=== PATIENT | female | born 1970 | race Two or more races ===

== ENCOUNTER 2024-11-05 20:21 | Inpatient (IN) | payer BC, OTHER ==
[~2024-11-05] VITALS: Ht 154.9 cm; Wt 67.3 kg
--- NOTE | 2024-11-05 20:43 | ECG ---
[facility] Test Date: 2024-11-05 Test Time: 20:35:45 Pat Name: TARAS OLIVA Department: [facility] ED Room: [address] [place] [address] Gender: F Community Education Coordinator: JUVENTINO : 1970 Requested By: MIRIAM GILMAN Order Number: [id number] Reading MD: Froylan Sheffield Measurements Intervals [place] Rate: 77 P: 40 VT: 159 QRS: 52 QRSD: 83 T: 57 QT: 398 QTc: 451 Interpretive Statements Sinus rhythm Electronically Signed On 11-06-2024 17:54:41 PDT by Froylan Sheffield Please click the below link to view image of tracing.
[2024-11-05] MEDS: LABETALOL HCL 20 MG/4 ML VL IV ONE (21:00)
--- NOTE | 2024-11-05 21:00 | ED.PDOC ---
History of Present Illness HPI Comments This is a 54-year-old female with past medical history of hypertension presented to the ED with chief complaint of burning chest pain, vomiting and elevated blood pressure. The patient mentioned that she was diagnosed with high blood pressure last year and was on antihypertensive for 4 months but stopped taking since March,. Today around 6:30 p.m. she started having burning chest pain which was localized, 10/17 without any aggravating factor but relieved by calm down and frequent urination and the blood pressure was 209/100. In the ED blood pressure was 163/100. 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 Family History Family History: Reviewed,noncontributory to illness, No family hx of Cancer, No family hx of DM, No family hx of Heart nathaniel, No family hx of HTN, No family hx ofKidney nathaniel, No family hx of Liver nathaniel, No family hx of Lung nathaniel, No family hx of Stroke Social History Smoker: Pipe Alcohol: Occasionally Drugs: Marijuana Lives In: Home Constitutional: denies: chills, diaphoresis, fatigue, fever, malaise, sweats, weakness, others EENTM: denies: blurred vision, double vision, ear bleeding, ear discharge, ear drainage, ear pain, ear ringing, eye pain, eye redness, hearing loss, mouth pain, mouth swelling, nasal discharge, nose bleeding, nose congestion, nose pain, photophobia, tearing, throat pain, throat swelling, voice changes, others Respiratory: denies: cough, hemoptysis, orthopnea, SOB at rest, shortness of breath, SOB with excertion, stridor, wheezing, others Cardiovascular: reports: chest pain, diaphoresis; denies: dizzy spells, Dyspnea on exertion, edema, irregular heart beat, left arm pain, lightheadedness, palpitations, PND, syncope, others Gastrointestinal: denies: abdomen distended, abdominal pain, blood streaked bowels, constipated, diarrhea, dysphagia, difficulty swallowing, hematemesis, melena, nausea, poor appetite, poor fluid intake, rectal bleeding, rectal pain, vomiting, others Genitourinary: denies: abnormal vagina bleeding, burning, dyspareunia, dysuria, flank pain, frequency, hematuria, incontinence, pain, , vagina discharge, urgency, others Neurological: denies: dizziness, fainting, headache, left sided numbness, left sided weakness, numbness, paresthesia, pre-existing deficit, right sided numbness, right sided weakness, seizure, speech problems, tingling, tremors, weakness, others Musculoskeletal: denies: back pain, gout, joint pain, joint swelling, muscle pain, muscle stiffness, neck pain, others Integumetry: denies: bruises, change in color, change in hair/nails, dryness, laceration, lesions, lumps, rash, wounds, others Allergic/Immunocompromised: denies: Difficulty Healing, Frequent Infections, Hives, Itching, others Endocrine: denies: excessive hunger, excessive sweating, excessive thirst, excessive urination, flushing, intolerance to cold, intolerance to heat, unexplained weight gain, unexplained weight loss, others Psychiatric: denies: anxiety, bipolar disorder, depression, hopeless, panic disorder, schizophrenia, sleepless, suicidal, others Physical Exam General Appearance: Normal HEENT: Normal ENT Inspection, Pharynx Normal, TMs Normal Neck: Full Range of Motion, Non-Tender, Normal, Normal Inspection Respiratory: Chest Non-Tender, Lungs Clear, No Accessory Muscle Use, No Respiratory Distress, Normal Breath Sounds Cardiovascular: No Edema, No JVD, No Murmur, No Gallop, Normal Peripheral Pulses, Regular Rate/Rhythm Breast Exam: Deferred Gastrointestinal: No Organomegaly, Non Tender, No Pulsatile Mass, Normal Bowel Sounds, Soft Genitalia: Deferred Pelvic: Deferred Rectal: Deferred Extremities: No calf tenderness, Normal capillary refill, Normal inspection, Normal range of motion, Non-tender, No pedal edema Neurologic: NOT DONE Cerebellar Function: NOT DONE Reflexes: NOT DONE Skin: NOT DONE Peripheral Pulses: 3+ carotid (R), 3+ carotid (L), 3+ femoral (R), 3+ femoral (L), 3+ dorsalis pedis (R), 3+ dorsalis pedis (L), 3+ Radial (R), 3+ Radial (L), 3+ Brachial (R), 3+ Brachial (L) Lymphatic: NOT DONE Was a procedure done? Was a procedure done?: No EKG EKG : Cardiac Rhythm: NSR Differential Dx Considerations may include: Uncontrolled hypertension, chest pain, panic attack, unstable angina. X-Ray, Labs, Meds, VS Vital Signs Date Time Temp Pulse Resp B/P (MAP) Pulse Ox O2 Delivery O2 Flow Rate FiO2 11/05/24 20:35 77 11/05/24 20:21 98.2 78 20 163/100 98 98.2 Lab Test 11/05/24 21:00 Range/Units White Blood Count Pending Red Blood Count Pending Hemoglobin Pending Hematocrit Pending Mean Corpuscular Volume Pending Mean Corpuscular Hemoglobin Pending Mean Corpuscular Hemoglobin Concent Pending Red Cell Distribution Width Pending Platelet Count Pending Mean Platelet Volume Pending Neutrophils (%) (Auto) Pending Lymphocytes (%) (Auto) Pending Monocytes (%) (Auto) Pending Basophils (%) (Auto) Pending Neutrophils # (Auto) Pending Lymphocytes # (Auto) Pending Monocytes # (Auto) Pending Sodium Level Pending Potassium Level Pending Chloride Level Pending Carbon Dioxide Level Pending Anion Gap Pending Blood Urea Nitrogen Pending Creatinine Pending Glomerular Filtration Rate Calc Pending BUN/Creatinine Ratio Pending Serum Glucose Pending Calcium Level Pending Troponin I High Sensitivity Pending B-Type Natriuretic Peptide Pending Time of 1ST Reevaluation: 21:50 Reevaluation 1ST: Improved Patient Education/Counseling: Diagnosis, Treatment Family Education/Counseling: No Family Present SEPSIS Sepsis Screen Date sepsis recognized/suspect: Nov 05, 2024 Time Sepsis recognized/suspect: 2020 Recent Procedure: No On Antibiotic Therapy: No Respiratory Rate >20: No Heart Rate >90: No Temp<36 C (96.8 F) or >38.3 C: No SBP <90 or MAP <65 mmHG: No New Acute Mental Status Change: No Is the patient on CPAP, BIPAP,: No Physician Orders Complete Blood Count (11/05/24 20:48) Basic Metabolic Panel (11/05/24 20:48) Troponin-I Hs (11/05/24 20:48) Urinalysis (11/05/24 20:48) Drug Screen (11/05/24 20:48) B-Type Natriuretic Peptide (11/05/24 20:48) Test, Urine (11/05/24 20:48) Vital Signs Date Time Temp Pulse Resp B/P (MAP) Pulse Ox O2 Delivery O2 Flow Rate FiO2 11/05/24 20:35 77 11/05/24 20:21 98.2 78 20 163/100 98 98.2 Laboratory Tests Test 11/05/24 21:00 White Blood Count Pending Departure 1 Departure Time of Disposition: 21:52 Impression: Primary Impression: Uncontrolled hypertension Additional Impression: Chest pain Disposition: 30 STILL A PATIENT Admit to: Tele Condition: Guarded Critical Care Note Critical Care Time?: No Stability Stability form required: MIRIAM Guerrero RESIDENT Nov 05, 2024 21:00
[2024-11-05 21:30] LABS: Chloride 104 mmol/L (98-107); Potassium 4.1 mmol/L (3.5-5.1); Sodium 142 mmol/L (136-145)
[2024-11-05 21:31] LABS: Anion Gap 7 (5-15); Calcium 10.0 mg/dL (8.7-10.4); Carbon Dioxide 31 mmol/L (20-31)
[2024-11-05 21:32] LABS: Hematocrit 43.3 % (36.0-46.0); Hemoglobin 15.2 g/dL (12.2-16.2); Mean Corpuscular Hemoglobin 31.8 pg (28.0-32.0); Mean Corpuscular Volume 90.6 fL (80.0-100.0); Nucleated Red Blood Cells % 0.2 %
[2024-11-05 21:36] LABS: BUN/Creatinine Ratio 14.9 (10.0-20.0); Blood Urea Nitrogen 13 mg/dL (9-23); Glucose 97 mg/dL (74-106)
[2024-11-05] MEDS ORDERED: ACETAMINOPHEN 325 MG TAB PO PRN (23:00)
[2024-11-05] MEDS ORDERED: ONDANSETRON HCL 4 MG/2 ML VIAL IV PRN (23:00)
[2024-11-05] MEDS ORDERED: hydrALAZINE HCL 20 MG/ML VL IV PRN (23:00)
[2024-11-05] MEDS: LISINOPRIL 5 MG TAB PO ONE (23:30)
--- NOTE | 2024-11-06 00:20 | DVHHP2 ---
History of Present Illness Reason for Visit: Chest pain History of Present Illness 54-year-old female presents for evaluation of chest pain. Patient reports developing substernal pressure-like chest pain with associated nausea and vomiting. She states when she checked her blood pressure was reading greater than 200. She was diagnosed with high blood pressure last year but only took medication for four months. Currently denies any symptoms. Past Medical History Hypertension Past Surgical History Denies Family History Noncontributory Smoke: No ALCOHOL: occassional Drugs: Marijuana Lives: with Family Review of Systems Review of Systems Review of systems are currently negative otherwise addressed in HPI. Allergies: Coded Allergies: Erythromycin (Verified Allergy, Unknown, 11/05/24) Medications Current Medications Medications Dose Ordered Sig/Susie Route Start Time Stop Time Status Last Admin Dose Admin Hydralazine HCl 10 mg Q6HP PRN IV 11/05/24 23:00 Lisinopril 10 mg DAILY PO 11/06/24 10:00 Aspirin 162 mg DAILY PO 11/06/24 10:00 Atorvastatin Calcium 10 mg HS PO 11/06/24 22:00 Ondansetron HCl 4 mg Q4HP PRN IV 11/05/24 23:00 Acetaminophen 650 mg Q6HP PRN PO 11/05/24 23:00 Exam Vital Signs Vital Signs Date Time Temp Pulse Resp B/P (MAP) Pulse Ox O2 Delivery O2 Flow Rate FiO2 11/05/24 20:35 77 11/05/24 20:21 98.2 20 163/100 98 98.2 Exam Gen: 54-year-old female in mild distress Skin: Warm, dry, normal color and texture, no rash. HEENT: Normocephalic atraumatic, mucous membranes moist and pink. Neck: Cervical and supraclavicular nodes normal without enlargement, trachea is midline, thyroid gland is normal without masses. Pulmonary: Clear to auscultation and percussion bilaterally. Cardiac: Regular rate and rhythm. No murmur Abdomen: Soft, nontender, nondistended, bowel sounds present all 4 quadrants, no guarding, no rigidity, no organomegaly. Extremities: No cyanosis, clubbing, no edema Neuro: Cranial nerves II through XII grossly intact, normal affect and speech, no focal motor deficits. Labs/Xrays Labs Test 11/05/24 23:12 11/05/24 21:00 Range/Units Troponin I High Sensitivity 397 *H </=34 ng/L White Blood Count 5.8 4.4-10.8 10^3/uL Red Blood Count 4.78 4.0-5.20 10^6/uL Hemoglobin 15.2 12.2-16.2 g/dL Hematocrit 43.3 36.0-46.0 % Mean Corpuscular Volume 90.6 80.0-100.0 fL Mean Corpuscular Hemoglobin 31.8 28.0-32.0 pg Mean Corpuscular Hemoglobin Concent 35.1 32.0-36.0 g/dL Red Cell Distribution Width 13.3 11.8-14.3 % Platelet Count 259 140-450 10^3/uL Mean Platelet Volume 8.4 6.9-10.8 fL Neutrophils (%) (Auto) 57.1 37.0-80.0 % Lymphocytes (%) (Auto) 33.3 10.0-50.0 % Monocytes (%) (Auto) 7.4 0.0-12.0 % Eosinophils (%) (Auto) 1.4 0.0-7.0 % Basophils (%) (Auto) 0.8 0.0-2.0 % Neutrophils # (Auto) 3.3 1.6-8.6 10 ^3/uL Lymphocytes # (Auto) 1.9 0.4-5.4 10 ^3/uL Monocytes # (Auto) 0.4 0-1.3 10 ^3/uL Eosinophils # (Auto) 0.1 0-0.8 10 ^3/uL Basophils # (Auto) 0 0-0.2 10 ^3/uL Nucleated Red Blood Cells 0.2 % Sodium Level 142 136-145 mmol/L Potassium Level 4.1 3.5-5.1 mmol/L Chloride Level 104 98-107 mmol/L Carbon Dioxide Level 31 20-31 mmol/L Anion Gap 7 5-15 Blood Urea Nitrogen 13 9-23 mg/dL Creatinine 0.87 0.550-1.02 mg/dL Glomerular Filtration Rate Calc 80 >90 mL/min BUN/Creatinine Ratio 14.9 10.0-20.0 Serum Glucose 97 74-106 mg/dL Calcium Level 10.0 8.7-10.4 mg/dL B-Type Natriuretic Peptide 12.32 0-100 pg/mL SEPSIS Sepsis Screen Date sepsis recognized/suspect: Nov 05, 2024 Time Sepsis recognized/suspect: 2020 Recent Procedure: No On Antibiotic Therapy: No Respiratory Rate >20: No Heart Rate >90: No Temp<36 C (96.8 F) or >38.3 C: No SBP <90 or MAP <65 mmHG: No New Acute Mental Status Change: No Is the patient on CPAP, BIPAP,: No Physician Orders Urinalysis (11/05/24 20:48) Drug Screen (11/05/24 20:48) Test, Urine (11/05/24 20:48) Chest Portable (11/05/24 21:55) Troponin-I Hs (11/05/24 23:46) Hydralazine Injection (Apresoline Inject (11/05/24 23:00) Lisinopril Tablet (Zestril Tablet) (11/06/24 10:00) Aspirin Tablet (11/06/24 10:00) Atorvastatin (Lipitor) (11/06/24 22:00) Basic Metabolic Panel (11/06/24 04:00) Ondansetron Hcl (Zofran) (11/05/24 23:00) Cardiac Diet-2gna,Lofat,Lochol (11/06/24 Breakfast) Echo 2d Mode Cardiac Dop (11/05/24 22:46) Condition: Fair (11/05/24 22:46) Acetaminophen Tablet (Tylenol Tablet) (11/05/24 23:00) Bedrest With Bathroom Privileg (11/05/24 22:46) Thyroid Stimulating Hormone (11/06/24 00:07) Lipid Panel (11/06/24 00:07) * Cardiology Consult (11/06/24 00:16) Vital Signs Date Time Temp Pulse Resp B/P (MAP) Pulse Ox O2 Delivery O2 Flow Rate FiO2 11/05/24 20:35 77 11/05/24 20:21 98.2 78 20 163/100 98 98.2 Laboratory Tests Test 11/05/24 21:00 White Blood Count 5.8 10^3/uL (4.4-10.8) Assessment/Plan Assessment/Plan Assessment NSTEMI Hypertensive crisis Plan Admit the patient to telemetry to the hospitalist ACS protocol Cardiology consultation Chest x-ray pending Continue treatment per orders. Plan discussed with: Patient My Orders Orders - HYMAN,OBED AGACNP Procedure Category Date Status Time Troponin-I Hs LAB 11/05/24 Logged 23:46 Hydralazine Injection PHA 11/05/24 In Process (Apresoline Inject 23:00 Lisinopril Tablet PHA 11/06/24 In Process (Zestril Tablet) 10:00 Aspirin Tablet PHA 11/06/24 In Process 10:00 Atorvastatin (Lipitor) PHA 11/06/24 In Process 22:00 Basic Metabolic Panel LAB 11/06/24 Logged 04:00 Ondansetron Hcl PHA 11/05/24 In Process (Zofran) 23:00 Cardiac DIET 11/06/24 Transmitted Diet-2gna,Lofat,Lochol Breakfast Echo 2d Mode Cardiac US 11/05/24 Logged DOP 22:46 Condition: Fair RUSSELL 11/05/24 In Process 22:46 Acetaminophen Tablet PHA 11/05/24 In Process (Tylenol Tablet) 23:00 Bedrest With Bathroom RUSSELL 11/05/24 In Process Privileg 22:46 Thyroid Stimulating LAB 11/06/24 In Process Hormone 00:07 Lipid Panel LAB 11/06/24 In Process 00:07 * Cardiology Consult CONS 11/06/24 Transmitted 00:16 Date of Service: Nov 05, 2024 Billing Provider: VICTORINO HYMAN Common Visit Codes: [id number] INP/OBS CARE (HIGH) VICTORINO HYMAN Nov 06, 2024 00:20
[2024-11-06 00:47] LABS: Cholesterol 220 mg/dL (< 200); HDL Cholesterol 69 mg/dL (40-59); Triglycerides 162 mg/dL (< 150)
--- NOTE | 2024-11-06 01:26 | DVH ---
CHEST RADIOGRAPH Indication: chest pain Technique: Single frontal view of the chest was obtained COMPARISON: None FINDINGS: Lines and Tubes: None Lungs: Clear Pleura: No effusion. No pneumothorax. Cardiomediastinal contours: Unremarkable Bones: Unremarkable IMPRESSION: 1. No acute disease.
[2024-11-06] MEDS: ENOXAPARIN SOD 100 MG/1 ML SYRINGE SC ONE (02:30)
[2024-11-06] MEDS ORDERED: NITROGLYCERIN 0.4 MG SL TAB SL PRN (02:45)
[2024-11-06] MEDS ORDERED: ONDANSETRON HCL 4 MG/2 ML VIAL IV PRN (02:45)
[2024-11-06] MEDS ORDERED: MORPHINE SULFATE INJ 2 MG/ml SYRG IV PRN (02:45)
[2024-11-06 03:24] VITALS: PULSE 69; RESP 15; O2SAT 95
[2024-11-06 05:02] LABS: Urine Amorphous Crystal FEW /hpf (None Seen); Urine Protein, UAD Negative (Negative)
[2024-11-06 05:05] LABS: Cannabinoid Screen, Urine Pos (NEGATIVE)
[2024-11-06 05:08] LABS: Amphetamine Screen, Urine Neg (NEGATIVE); Barbiturate Scree,Urine Neg (NEGATIVE); Benzodiazephine Screen, Urine Neg (NEGATIVE); Cocaine Screen, Urine Neg (NEGATIVE); Opiate Scree,Urine Neg (NEGATIVE); Phencyclidine Screen, Urine Neg (NEGATIVE)
[2024-11-06 06:53] LABS: Chloride 105 mmol/L (98-107); Potassium 3.6 mmol/L (3.5-5.1); Sodium 142 mmol/L (136-145)
[2024-11-06 06:54] LABS: Anion Gap 10 (5-15); Calcium 9.5 mg/dL (8.7-10.4); Carbon Dioxide 27 mmol/L (20-31)
[2024-11-06 06:59] LABS: BUN/Creatinine Ratio 19.4 (10.0-20.0); Blood Urea Nitrogen 14 mg/dL (9-23); Glucose 92 mg/dL (74-106)
[2024-11-06 09:03] VITALS: PULSE 72; RESP 14; O2SAT 94
[2024-11-06 10:04] VITALS: BP 146/95; PULSE 73; RESP 18; TEMP 98; O2SAT 98
[2024-11-06 10:17] VITALS: BP 146/95; PULSE 73; RESP 18; TEMP 98; O2SAT 98
[2024-11-06] MEDS: LISINOPRIL 5 MG TAB PO SCH (10:29)
--- NOTE | 2024-11-06 10:30 | DVHINCON2 ---
Date Seen: Nov 06, 2024 Referring Physician ELMA Woodall Reason for Consultation Elevated troponin History of Present Illness This is a 54-year-old female patient who presents to emergency room with chief complaint of chest burning, nausea, and vomiting. The patient reports that she and her went for a bike ride and shortly after she began to feel this burning sensation in her chest. She describes it as provoked with a bike ride, constant, burning in nature, localized to substernal region, and nonradiating. Associated symptoms include nausea and vomiting. The patient reports that when she came home had an episode of emesis and immediately felt relief of the chest burning. She decided to check her blood pressure at home and was surprised when she saw her systolic reading greater than 200. She said she was trying to calm and then decided to recheck her blood pressure with a repeat systolic greater than 170. The patient decided to come to the emergency room for further evaluation. Initial twelve lead electrocardiogram reveals normal sinus rhythm without any significant ST segment changes. Initial troponin level of 109ng/L with up trend and current peak level at 464ng/L. Significant past medical history includes hypertension and dyslipidemia. The patient reports that she previously was prescribed antihypertensive medications but was taken off by her primary care physician at the end of last year. She states that she does not regularly check her blood pressures at home. Past Medical History Past medical history reviewed. No other significant than mentioned above. Past Surgical History Bilateral breast implants Ovarian cyst removal Family History Family history reviewed. Social History Patient admits to vaping daily Denies any illicit drug use. Toxicology screen positive for cannabinoids States occasional alcohol use 1-2 times per month Allergies: Coded Allergies: Erythromycin (Verified Allergy, Unknown, 11/05/24) Home Meds Denies any prescribed medications Current Medications Current Medications Medications (Trade) Dose Ordered Sig/Susie Route PRN Reason Start Time Stop Time Status Last Admin Hydralazine HCl (Apresoline Injection) 10 mg Q6HP PRN IV SBP>150 11/05/24 23:00 Lisinopril (Zestril Tablet) 10 mg DAILY PO 11/06/24 10:00 Aspirin 162 mg DAILY PO 11/06/24 10:00 Atorvastatin Calcium (Lipitor) 10 mg HS PO 11/06/24 22:00 Ondansetron HCl (Zofran) 4 mg Q4HP PRN IV NAUSEA / VOMITING 11/05/24 23:00 Acetaminophen (Tylenol Tablet) 650 mg Q6HP PRN PO PAIN SCALE 1-3 OR TEMP>100.4 11/05/24 23:00 Ondansetron HCl (Zofran) 4 mg Q4HP PRN IV NAUSEA / VOMITING 11/06/24 02:45 Nitroglycerin (Ntrostat Sublingual) 0.4 mg Q5MINP PRN SL FOR CHEST PAIN 11/06/24 02:45 Morphine Sulfate 2 mg Q30M PRN IV FOR CHEST PAIN 11/06/24 02:45 Review of Systems Constitutional: No symptom reported Ears, Nose, & Throat: No symptom reported Eyes: No symptom reported Neurological: No symptoms reported Pulmonary/Respiratory: No symptoms reported Cardiovascular: Chest burning Gastrointestinal: Nausea and vomiting Genitourinary: No symptom reported Musculoskeletal: No symptom reported Skin: No symptom reported Psychiatric: No symptom reported Endocrine: No symptom reported Hematologic/Lymphatic: No symptom reported Vital Signs Vital Signs Date Time Temp Pulse Resp B/P (MAP) Pulse Ox O2 Delivery O2 Flow Rate FiO2 11/06/24 10:04 98.0 73 18 146/95 (112) 98 98.0 11/06/24 09:03 Room Air* 0 21 Physical Exam General Appearance: Cooperative. Well-developed. Well-nourished. No acute dis tress. Pulmonary/Respiratory: Clear, bilateral breaths sounds. Cardiovascular/Chest: Regular rate and rhythm. Peripheral Pulses: 2+ Radial (R). 2+ Radial (L). 2+ Pedal (R). 2+ Pedal (L) Abdominal Exam: Normal bowel sounds. Ankle Exam: Negative ankle edema Lower extremities: Negative lower extremity edema Neuro/Mental Status: A/OX4, coherent. Thoughts/Psych: Normal thought pattern. Appropriate mood and affect. Good judgment and insight. Appearance: No acute distress. Skin Exam: Normal inspection. Normal color. Warm and dry. Labs/Diagnostic Data Labs Test 11/06/24 06:10 11/06/24 03:55 11/05/24 21:00 Range/Units Sodium Level 142 136-145 mmol/L Potassium Level 3.6 3.5-5.1 mmol/L Chloride Level 105 98-107 mmol/L Carbon Dioxide Level 27 20-31 mmol/L Anion Gap 10 5-15 Blood Urea Nitrogen 14 9-23 mg/dL Creatinine 0.72 0.550-1.02 mg/dL Glomerular Filtration Rate Calc 100 >90 mL/min BUN/Creatinine Ratio 19.4 10.0-20.0 Serum Glucose 92 74-106 mg/dL Hemoglobin A1c 5.2 <5.7 % A1C Calcium Level 9.5 8.7-10.4 mg/dL Magnesium Level 1.9 1.6-2.6 mg/dL Urine Color Colorless Yellow Urine Clarity Turbid H Clear Urine pH 7.0 5.0-9.0 Urine Specific [place] 1.018 1.001-1.035 Urine Protein Negative Negative Urine Ketones Negative Negative Urine Blood Negative Negative /uL Urine Nitrite Negative Negative Urine Bilirubin Negative Negative Urine Urobilinogen Normal Negative mg/dL Urine Leukocyte Esterase Negative Negative /uL Urine RBC None seen 0 - 4 /hpf Urine Microscopic WBC < 1 0-5 /HPF Urine Squamous Epithelial Cells Few <5 /hpf Urine Amorphous Crystals Few None Seen /hpf Urine Bacteria Few H None Seen /hpf Urine Glucose Normal Normal mg/dL Urine Test Negative Negative Urine Opiates Screen Neg NEGATIVE Urine Fentanyl Screen Neg NEGATIVE Urine Barbiturates Screen Neg NEGATIVE Urine Phencyclidine Screen Neg NEGATIVE Urine Amphetamines Screen Neg NEGATIVE Urine Benzodiazepines Screen Neg NEGATIVE Urine Cocaine Screen Neg NEGATIVE Urine Cannabinoids Screen Pos NEGATIVE White Blood Count 5.8 4.4-10.8 10^3/uL Red Blood Count 4.78 4.0-5.20 10^6/uL Hemoglobin 15.2 12.2-16.2 g/dL Hematocrit 43.3 36.0-46.0 % Mean Corpuscular Volume 90.6 80.0-100.0 fL Mean Corpuscular Hemoglobin 31.8 28.0-32.0 pg Mean Corpuscular Hemoglobin Concent 35.1 32.0-36.0 g/dL Red Cell Distribution Width 13.3 11.8-14.3 % Platelet Count 259 140-450 10^3/uL Mean Platelet Volume 8.4 6.9-10.8 fL Neutrophils (%) (Auto) 57.1 37.0-80.0 % Lymphocytes (%) (Auto) 33.3 10.0-50.0 % Monocytes (%) (Auto) 7.4 0.0-12.0 % Eosinophils (%) (Auto) 1.4 0.0-7.0 % Basophils (%) (Auto) 0.8 0.0-2.0 % Neutrophils # (Auto) 3.3 1.6-8.6 10 ^3/uL Lymphocytes # (Auto) 1.9 0.4-5.4 10 ^3/uL Monocytes # (Auto) 0.4 0-1.3 10 ^3/uL Eosinophils # (Auto) 0.1 0-0.8 10 ^3/uL Basophils # (Auto) 0 0-0.2 10 ^3/uL Nucleated Red Blood Cells 0.2 % B-Type Natriuretic Peptide 12.32 0-100 pg/mL Triglycerides Level 162 H < 150 mg/dL Cholesterol Level 220 H < 200 mg/dL LDL Cholesterol 131 H < 100 mg/dL HDL Cholesterol 69 H 40-59 mg/dL Thyroid Stimulating Hormone (TSH) 2.82 0.55-4.78 uIU/mL Assessment NSTEMI, likely type II in the setting of hypertensive urgency Rule out structural heart disease Dyslipidemia Nicotine dependence Marijuana use Plan/Recommendation We will continue with the following plan/recommendations (Dr. Sheffield): We will obtain a transthoracic echocardiogram to evaluate cardiac function. Elevated troponin level likely in the setting of hypertensive urgency. We will recommend for aggressive BP control. Initiate lipid-lowering agent. No significant ST segment changes seen on twelve lead electrocardiogram. The patient denies any cardiac symptoms at time of assessment. In the setting of an unremarkable transthoracic echocardiogram, there is no further inpatient cardiac workup indicated at this time. The patient may follow up with Cardiology in the outpatient setting for stress test if deemed necessary. Thank you for allowing us to care for this patient. Please call with any questions or concerns. Critical care time spent: 44 minutes This medical document was created using an electronic medical record system with voice recognition software and computerized dictation system. Although this document has been carefully reviewed, there might still be some phonetic and typographical errors. Occasional wrong-word or ``sound-alike substitutions may have occurred due to the inherent limitations of voice recognition software. These areas are purely typographical due to imperfections of the software programs and do not reflect any compromise in the patient's medical care. Please read the chart carefully and recognize, using context, where these substitutions have occurred. Plan discussed with: Patient NYHA Physical activity limitations: NA Date of Service: Nov 06, 2024 Billing Provider: LUIS ALBERT Cardiology Common Codes: 80963-[id number] INP/OBS CARE (High) Cardiology Consultation Codes: [id number] CONSULT <45MIN LUIS ALBERT Nov 06, 2024 10:30
--- NOTE | 2024-11-06 11:42 | DVHPN2 ---
Objective Vitals Vital Signs Date Time Temp Pulse Resp B/P (MAP) Pulse Ox O2 Delivery O2 Flow Rate FiO2 11/06/24 10:29 146/95 11/06/24 10:17 98.0 73 18 98 98.0 11/06/24 10:17 Room Air* 0 21 Medications Current Medications Medications Dose Ordered Sig/Susie Route Start Time Stop Time Status Last Admin Dose Admin Hydralazine HCl 10 mg Q6HP PRN IV 11/05/24 23:00 Lisinopril 10 mg DAILY PO 11/06/24 10:00 11/06/24 10:29 10 MG Ondansetron HCl 4 mg Q4HP PRN IV 11/05/24 23:00 Acetaminophen 650 mg Q6HP PRN PO 11/05/24 23:00 Ondansetron HCl 4 mg Q4HP PRN IV 11/06/24 02:45 Nitroglycerin 0.4 mg Q5MINP PRN SL 11/06/24 02:45 Morphine Sulfate 2 mg Q30M PRN IV 11/06/24 02:45 Aspirin 81 mg DAILY PO 11/07/24 10:00 Atorvastatin Calcium 40 mg HS PO 11/06/24 22:00 Laboratory Results Laboratory Tests 11/05/24 21:00 11/06/24 06:10 Chemistry Test 11/05/24 21:00 11/06/24 06:10 Calcium Level 10.0 mg/dL (8.7-10.4) 9.5 mg/dL (8.7-10.4) Magnesium Level 1.9 mg/dL (1.6-2.6) Lipid panel Test 11/05/24 21:00 Cholesterol Level 220 mg/dL (< 200) H HDL Cholesterol 69 mg/dL (40-59) H Triglycerides Level 162 mg/dL (< 150) H Cardiac Markers Test 11/05/24 21:00 B-Type Natriuretic Peptide 12.32 pg/mL (0-100) HgA1c, TSH Test 11/05/24 21:00 11/06/24 06:10 Thyroid Stimulating Hormone (TSH) 2.82 uIU/mL (0.55-4.78) Hemoglobin A1c 5.2 % A1C (<5.7) Urinalysis Test 11/06/24 03:55 Urine Color Colorless (Yellow) Urine Clarity Turbid (Clear) H Urine pH 7.0 (5.0-9.0) Urine Specific [place] 1.018 (1.001-1.035) Urine Protein Negative (Negative) Urine Ketones Negative (Negative) Urine Blood Negative /uL (Negative) Urine Nitrite Negative (Negative) Urine Bilirubin Negative (Negative) Urine Urobilinogen Normal mg/dL (Negative) Urine Leukocyte Esterase Negative /uL (Negative) Urine RBC None seen /hpf (0 - 4) Urine Microscopic WBC < 1 /HPF (0-5) Urine Squamous Epithelial Cells Few /hpf (<5) Urine Amorphous Crystals Few /hpf (None Seen) Urine Bacteria Few /hpf (None Seen) H Urine Glucose Normal mg/dL (Normal) Urine Test Negative (Negative) ROLAND MAHAN MD Nov 06, 2024 11:42
[2024-11-06 12:04] VITALS: BP 148/92; PULSE 70; RESP 14; TEMP 97.6; O2SAT 98
[2024-11-06] MEDS ORDERED: AML5T PO (14:13)
--- NOTE | 2024-11-06 14:14 | DVHDS2 ---
Discharge Summary Date of Admission Nov 06, 2024 at 02:41 Date of Discharge: Nov 06, 2024 Labs/Diagnostic Data: Laboratory Results Test 11/06/24 10:30 11/06/24 06:10 11/06/24 03:55 11/05/24 21:00 Troponin I High Sensitivity 326 ng/L (</=34) Sodium Level 142 mmol/L (136-145) Potassium Level 3.6 mmol/L (3.5-5.1) Chloride Level 105 mmol/L (98-107) Carbon Dioxide Level 27 mmol/L (20-31) Anion Gap 10 (5-15) Blood Urea Nitrogen 14 mg/dL (9-23) Creatinine 0.72 mg/dL (0.550-1.02) Glomerular Filtration Rate Calc 100 mL/min (>90) BUN/Creatinine Ratio 19.4 (10.0-20.0) Serum Glucose 92 mg/dL (74-106) Hemoglobin A1c 5.2 % A1C (<5.7) Calcium Level 9.5 mg/dL (8.7-10.4) Magnesium Level 1.9 mg/dL (1.6-2.6) Urine Color Colorless (Yellow) Urine Clarity Turbid (Clear) Urine pH 7.0 (5.0-9.0) Urine Specific [place] 1.018 (1.001-1.035) Urine Protein Negative (Negative) Urine Ketones Negative (Negative) Urine Blood Negative /uL (Negative) Urine Nitrite Negative (Negative) Urine Bilirubin Negative (Negative) Urine Urobilinogen Normal mg/dL (Negative) Urine Leukocyte Esterase Negative /uL (Negative) Urine RBC None seen /hpf (0 - 4) Urine Microscopic WBC < 1 /HPF (0-5) Urine Squamous Epithelial Cells Few /hpf (<5) Urine Amorphous Crystals Few /hpf (None Seen) Urine Bacteria Few /hpf (None Seen) Urine Glucose Normal mg/dL (Normal) Urine Test Negative (Negative) Urine Opiates Screen Neg (NEGATIVE) Urine Fentanyl Screen Neg (NEGATIVE) Urine Barbiturates Screen Neg (NEGATIVE) Urine Phencyclidine Screen Neg (NEGATIVE) Urine Amphetamines Screen Neg (NEGATIVE) Urine Benzodiazepines Screen Neg (NEGATIVE) Urine Cocaine Screen Neg (NEGATIVE) Urine Cannabinoids Screen Pos (NEGATIVE) White Blood Count 5.8 10^3/uL (4.4-10.8) Red Blood Count 4.78 10^6/uL (4.0-5.20) Hemoglobin 15.2 g/dL (12.2-16.2) Hematocrit 43.3 % (36.0-46.0) Mean Corpuscular Volume 90.6 fL (80.0-100.0) Mean Corpuscular Hemoglobin 31.8 pg (28.0-32.0) Mean Corpuscular Hemoglobin Concent 35.1 g/dL (32.0-36.0) Red Cell Distribution Width 13.3 % (11.8-14.3) Platelet Count 259 10^3/uL (140-450) Mean Platelet Volume 8.4 fL (6.9-10.8) Neutrophils (%) (Auto) 57.1 % (37.0-80.0) Lymphocytes (%) (Auto) 33.3 % (10.0-50.0) Monocytes (%) (Auto) 7.4 % (0.0-12.0) Eosinophils (%) (Auto) 1.4 % (0.0-7.0) Basophils (%) (Auto) 0.8 % (0.0-2.0) Neutrophils # (Auto) 3.3 10 ^3/uL (1.6-8.6) Lymphocytes # (Auto) 1.9 10 ^3/uL (0.4-5.4) Monocytes # (Auto) 0.4 10 ^3/uL (0-1.3) Eosinophils # (Auto) 0.1 10 ^3/uL (0-0.8) Basophils # (Auto) 0 10 ^3/uL (0-0.2) Nucleated Red Blood Cells 0.2 % B-Type Natriuretic Peptide 12.32 pg/mL (0-100) Triglycerides Level 162 mg/dL (< 150) Cholesterol Level 220 mg/dL (< 200) LDL Cholesterol 131 mg/dL (< 100) HDL Cholesterol 69 mg/dL (40-59) Thyroid Stimulating Hormone (TSH) 2.82 uIU/mL (0.55-4.78) Other Laboratory Tests 11/06/24 06:10 11/05/24 21:00 Final Diagnosis/Problems List HTN uncontrolled Discharge Disposition: Home Discharge Instruct/Medications Diet: Cardiac 2g Na,low cholest Activity: No Restrictions, As Tolerated Follow Up/Referral: pcp 1-2 weeks Medications: amlodipine 5mg PO qday Scheduled Amlodipine Besylate (Norvasc Tablet), 1 TAB PO DAILY Discharge Statement: "Patient was advised to return to the ER or call 911 if any headaches, dizziness, shortness of breath, chest pain, abdominal pain, bleeding, fevers, or worsening of medical condition. Patient was counseled about treatment plan, medications, possible side effects, patientverbalized understanding. All questions were answered to the best of my ability. This discharge took greater then 30 minutes in planning, reviewing documentation, counseling the patient, and discussing with other team members." ASSESSMENT ASSESSMENT Assessment HTN uncontrolled ROLAND MAHAN MD Nov 06, 2024 14:14
[2024-11-06] MEDS ORDERED: ATORVASTATIN 20 MG TAB PO SCH ×2 (22:00)
--- NOTE | 2024-11-07 17:43 | DVHSR ---
APPROVED REPORT EXAM: Two-dimensional and M-mode echocardiogram with Doppler and color Doppler. Blood Pressure: 155/68 mmHg INDICATION Chest Pain RISK FACTORS Height: 5'4, Weight: 147 DIMENSIONS LVDd3.9 (3.8-5.7cm)LA (2D)3.8 (1.9-4.0cm)Aortic Root3.1 (2.0-3.7cm) LVDs2.9 (2.5-4.0cm)LA (MM) (1.9-4.0cm)Aortic Cusp Exc1.8 (1.5-2.0cm) EF (%) 50.0 (55-70%)Rt. Atrium3.3 (1.9-4.0cm)Asc. Aorta2.9 cm IVSd0.9 (0.7-1.1cm)RV (D)3.8 (1.8-2.4cm) PWd0.7 (0.7-1.1cm) Mitral Valve MitralMitral Stenosis E wave0.62m/sMV Mean GR.mmHg A wave0.71m/sMV Peak GR.mmHg E/A ratio0.92D MVAcm2 DECEL [id number] 1/2 [place] Aortic Valve Aortic ValveAortic Stenosis V10.68m/Veronika Mean GR.2mmHg V20.92m/Veronika Peak GR.3mmHg LVOT Diameter2.1 (1.8-2.4cm)Doppler AVA2.56cm2 Pulmonic Valve V20.66m/s Tricuspid Valve TR Velocity1.56m/s [id number] Conclusion Sinus rhythm. Normal chamber sizes. Normal valves. EF of 55-60% with normal RV function. Dopplers unremarkable. No pericardial effusion masses or vegetations.
== END 2024-11-06 14:30 | disposition home or self-care (01) | DRG 282 ==
LOC: ER 20:21 → OVERFLOW 11-06 02:41
PROVIDERS: ADMIT Internal Medicine; ATTEND Internal Medicine
DX: I16.0 Hypertensive urgency (principal); I21.A1 Myocardial infarction type 2; F17.290 Nicotine dependence, other tobacco product, uncomplicated; E78.5 Hyperlipidemia, unspecified; Z98.82 Breast implant status; Z88.1 Allergy status to other antibiotic agents; Z79.899 Other long term (current) drug therapy
CPT/HCPCS: 36415; 80048; 80061; 80307; 81001; 81025; 83036; 83735; 83880; 84443; 84484; 85025; 93005; 93306; G0378